=== PATIENT | male | born 1945 | race Caucasian/White ===

== ENCOUNTER → 2021-11-19 | Outpatient (CLI) | payer MEDICARE, OTHER ==
[~2021-11-19] MED LIST: ACET32TAB PO; AMLO1TAB24 PO; AMOX875T2 PO; FARX1TAB5 PO; FLUD0.1T PO; GABA-1171 PO; GABA-282 PO; HYDR25TA PO; NORT25CA2 PO; VITMTA PO
== END ==
LOC: M PAIN 13:00
PROVIDERS: ATTEND Nurse Practitioner Family
DX: M96.1 Postlaminectomy syndrome, not elsewhere classified (principal); M51.16 Intervertebral disc disorders with radiculopathy, lumbar region; G89.29 Other chronic pain; E11.9 Type 2 diabetes mellitus without complications; Z79.899 Other long term (current) drug therapy

== ENCOUNTER 2021-11-28 11:37 | Inpatient (IN) | payer MEDICARE, OTHER ==
[~2021-11-28] VITALS: Ht 167.6 cm; Wt 71.0 kg
[2021-11-28] MEDS ORDERED: FARX1TAB5 PO (12:09)
[2021-11-28] MEDS ORDERED: GABA-282 PO (12:09)
[2021-11-28] MEDS ORDERED: NORT25CA2 PO (12:09)
[2021-11-28] MEDS ORDERED: LABETALOL 100MG/20ML VIAL IV STA (12:42)
[2021-11-28 13:30] LABS: BASO # 0.1 10^3/uL (0.0-0.2); BASO % 1.3 % (0.0-1.0); EOS # 0.4 10^3/uL (0.0-0.5); EOS % 5.2 % (0.0-3.0); HEMATOCRIT 44.7 % (42.0-52.0); LYMPH # 1.2 10^3/uL (1.5-5.0); LYMPH % 15.5 % (24.0-44.0); MEAN CORPUSCULAR HGB CONC 33.6 g/dl (32.0-36.5); MEAN CORPUSCULAR VOLUME 83.4 fl (80.0-96.0); MONO # 0.9 10^3/uL (0.0-0.8); MONO % 11.5 % (2.0-8.0); NEUTROPHILS # 5.1 10^3/uL (1.5-8.5); NEUTROPHILS % 65.7 % (36.0-66.0); PLATELET COUNT, AUTOMATED 194 10^3/uL (150-450); RED BLOOD COUNT 5.36 10^6/uL (4.30-6.10); WHITE BLOOD COUNT 7.7 10^3/uL (4.0-10.0)
[2021-11-28 13:54] LABS: RSV AMPLIFICATION NEGATIVE (NEGATIVE)
[2021-11-28 13:58] LABS: ALT/SGPT 20 U/L (12-78); BILIRUBIN,DIRECT 0.1 MG/DL (0.0-0.2); BILIRUBIN,TOTAL 0.4 MG/DL (0.2-1.0); BLOOD UREA NITROGEN 26 MG/DL (7-18); CALCIUM LEVEL 9.4 MG/DL (8.8-10.2); CARBON DIOXIDE LEVEL 25 MEQ/L (21-32); CHLORIDE LEVEL 105 MEQ/L (98-107); CREATININE FOR GFR 1.02 MG/DL (0.70-1.30); ETHYL ALCOHOL (ETHANOL) < 0.003 % (0.000-0.010); GLOMERULAR FILTRATION RATE > 60.0 (>42); GLUCOSE, FASTING 174 MG/DL (70-100); POTASSIUM SERUM 3.8 MEQ/L (3.5-5.1); SODIUM LEVEL 140 MEQ/L (136-145); TOTAL PROTEIN 7.1 GM/DL (6.4-8.2)
[2021-11-28] MEDS ORDERED: ACETAMINOPHEN TAB 650MG DOSE (2X325MG) PO PRN (16:45)
[2021-11-28 17:46] LABS: AMPHETAMINES LEVEL URINE NEGATIVE (NEGATIVE); BARBITURATES URINE NEGATIVE (NEGATIVE); BENZODIAZEPINES URINE NEGATIVE (NEGATIVE); CANNABINOIDS URINE NEGATIVE (NEGATIVE); COCAINE METABOLITE URINE NEGATIVE (NEGATIVE); METHADONE URINE NEGATIVE (NEGATIVE); OPIATES URINE NEGATIVE (NEGATIVE); PHENCYCLIDINE URINE NEGATIVE (NEGATIVE)
[2021-11-28] MEDS ORDERED: hydrALAZINE 20MG/ML 1ML VIAL (J0360 PER 20MG) IV ONE (18:00)
[2021-11-28] MEDS ORDERED: DEXTROSE 50% 50 ML SYRINGE IV PRN (18:15)
[2021-11-28] MEDS ORDERED: GLUCOSE 4GM CHEW TABLET PO PRN (18:15)
[2021-11-28] MEDS ORDERED: GLUCAGON INJ 1MG VIAL SC PRN (18:15)
[2021-11-28 18:16] LABS: MAGNESIUM LEVEL 2.5 MG/DL (1.8-2.4)
[2021-11-28 18:38] LABS: VITAMIN B12 LEVEL 889 PG/ML (247-911)
[2021-11-28 19:15] LABS: BLOOD UREA NITROGEN 26 MG/DL (7-18); CALCIUM LEVEL 9.4 MG/DL (8.8-10.2); CARBON DIOXIDE LEVEL 27 MEQ/L (21-32); CHLORIDE LEVEL 105 MEQ/L (98-107); CREATININE FOR GFR 0.97 MG/DL (0.70-1.30); GLOMERULAR FILTRATION RATE > 60.0 (>42); GLUCOSE, FASTING 138 MG/DL (70-100); POTASSIUM SERUM 3.9 MEQ/L (3.5-5.1); SODIUM LEVEL 141 MEQ/L (136-145)
[2021-11-28 19:19] LABS: CK-MB VALUE MASS 2.7 NG/ML (<3.6); MB/CK RELATIVE INDEX 3.6 (< OR =4)
[2021-11-28] MEDS: hydrALAZINE 20MG/ML 1ML VIAL (J0360 PER 20MG) IV SCH (20:13)
[2021-11-28] MEDS ORDERED: NORTRIPTYLINE 25 MG CAP PO SCH (21:00)
[2021-11-28] MEDS ORDERED: ACET32TAB PO (22:25)
[2021-11-28] MEDS ORDERED: VITMTA PO (22:25)
[2021-11-28] MEDS ORDERED: HOME MED LIST COMPLETE! XX SCH (22:30)
[2021-11-28] MEDS: INSULIN LISPRO (NovoLOG) PER UNIT SC SCH (22:36)
[2021-11-28 22:45] VITALS: BP 184/100
[2021-11-28] MEDS: QUEtiapine FUMARATE 25 MG TAB PO SCH (23:50)
[2021-11-28] MEDS: amLODIPine 5 MG TAB PO SCH (23:50)
[2021-11-28] MEDS: GABAPENTIN 100 MG CAP PO SCH (23:51)
[2021-11-29] VITALS: BP 182/100
[2021-11-29] MEDS ORDERED: hydrALAZINE 20MG/ML 1ML VIAL (J0360 PER 20MG) IV SCH
[2021-11-29 01:20] LABS: BLOOD UREA NITROGEN 25 MG/DL (7-18); CALCIUM LEVEL 9.2 MG/DL (8.8-10.2); CARBON DIOXIDE LEVEL 26 MEQ/L (21-32); CHLORIDE LEVEL 105 MEQ/L (98-107); CREATININE FOR GFR 1.11 MG/DL (0.70-1.30); GLOMERULAR FILTRATION RATE > 60.0 (>42); GLUCOSE, FASTING 195 MG/DL (70-100); POTASSIUM SERUM 3.9 MEQ/L (3.5-5.1); SODIUM LEVEL 139 MEQ/L (136-145)
[2021-11-29 01:25] LABS: CK-MB VALUE MASS 2.6 NG/ML (<3.6); MB/CK RELATIVE INDEX 3.33 (< OR =4)
[2021-11-29] MEDS: hydrALAZINE 20MG/ML 1ML VIAL (J0360 PER 20MG) IV SCH (02:00)
[2021-11-29 04:00] VITALS: BP 160/86
[2021-11-29 04:50] LABS: HEMATOCRIT 41.4 % (42.0-52.0); HEMOGLOBIN 14.1 g/dl (13.5-17.5); MEAN CORPUSCULAR HEMOGLOBIN 28.8 pg (27.0-33.0); MEAN CORPUSCULAR HGB CONC 34.1 g/dl (32.0-36.5); MEAN CORPUSCULAR VOLUME 84.7 fl (80.0-96.0); PLATELET COUNT, AUTOMATED 190 10^3/uL (150-450); RED BLOOD COUNT 4.89 10^6/uL (4.30-6.10); WHITE BLOOD COUNT 7.1 10^3/uL (4.0-10.0)
[2021-11-29 05:10] LABS: BLOOD UREA NITROGEN 25 MG/DL (7-18); CARBON DIOXIDE LEVEL 24 MEQ/L (21-32); CHLORIDE LEVEL 109 MEQ/L (98-107); CREATININE FOR GFR 1.07 MG/DL (0.70-1.30); GLOMERULAR FILTRATION RATE > 60.0 (>42); GLUCOSE, FASTING 166 MG/DL (70-100); POTASSIUM SERUM 3.8 MEQ/L (3.5-5.1); SODIUM LEVEL 143 MEQ/L (136-145)
[2021-11-29 05:11] LABS: CALCIUM LEVEL 9.5 MG/DL (8.8-10.2); MAGNESIUM LEVEL 2.4 MG/DL (1.8-2.4)
[2021-11-29 08:01] VITALS: BP 156/84
[2021-11-29] MEDS ORDERED: **hydrALAZINE HCL** 25 MG TAB PO PRN (09:20)
[2021-11-29] MEDS: INSULIN LISPRO (NovoLOG) PER UNIT SC SCH ×4 (09:37→21:00)
[2021-11-29] MEDS: GABAPENTIN 100 MG CAP PO SCH ×2 (09:38→21:00)
[2021-11-29] MEDS: MULTIVITAMINS/MINERALS THERAP 1 TAB PO SCH (09:38)
[2021-11-29] MEDS: amLODIPine 5 MG TAB PO SCH ×2 (09:38→21:12)
[2021-11-29] MEDS: ENOXAPARIN 40MG/0.4ML SYRINGE (J1650 PER 10MG) SC SCH (09:38)
[2021-11-29 13:04] LABS: BLOOD UREA NITROGEN 26 MG/DL (7-18); CALCIUM LEVEL 9.8 MG/DL (8.8-10.2); CARBON DIOXIDE LEVEL 25 MEQ/L (21-32); CHLORIDE LEVEL 105 MEQ/L (98-107); CREATININE FOR GFR 1.13 MG/DL (0.70-1.30); GLOMERULAR FILTRATION RATE > 60.0 (>42); GLUCOSE, FASTING 214 MG/DL (70-100); POTASSIUM SERUM 3.6 MEQ/L (3.5-5.1); SODIUM LEVEL 138 MEQ/L (136-145)
[2021-11-29 15:24] VITALS: BP 147/71
[2021-11-29 17:54] VITALS: BP 163/89
[2021-11-29 19:04] LABS: CALCIUM LEVEL 9.3 MG/DL (8.8-10.2); CREATININE FOR GFR 1.24 MG/DL (0.70-1.30); POTASSIUM SERUM 3.6 MEQ/L (3.5-5.1)
[2021-11-29] MEDS: AUGMENTIN 875 MG TAB PO SCH (20:59)
[2021-11-29] MEDS: QUEtiapine FUMARATE 25 MG TAB PO SCH (21:11)
[2021-11-29 22:00] VITALS: BP 175/98
[2021-11-29 23:01] LABS: BLOOD UREA NITROGEN 29 MG/DL (7-18); CALCIUM LEVEL 8.4 MG/DL (8.8-10.2); CARBON DIOXIDE LEVEL 26 MEQ/L (21-32); CHLORIDE LEVEL 105 MEQ/L (98-107); CREATININE FOR GFR 1.16 MG/DL (0.70-1.30); GLOMERULAR FILTRATION RATE > 60.0 (>42); GLUCOSE, FASTING 166 MG/DL (70-100); POTASSIUM SERUM 3.7 MEQ/L (3.5-5.1); SODIUM LEVEL 138 MEQ/L (136-145)
[2021-11-30] VITALS: BP_SYST 101; BP_SYST 155; BP_SYST 184; BP_DIAS 104; BP_DIAS 61; BP_DIAS 85
[2021-11-30 06:00] VITALS: BP 143/84
[2021-11-30 06:58] LABS: HEMATOCRIT 43.4 % (42.0-52.0); HEMOGLOBIN 14.5 g/dl (13.5-17.5); MEAN CORPUSCULAR HEMOGLOBIN 28.7 pg (27.0-33.0); MEAN CORPUSCULAR HGB CONC 33.4 g/dl (32.0-36.5); MEAN CORPUSCULAR VOLUME 85.8 fl (80.0-96.0); PLATELET COUNT, AUTOMATED 215 10^3/uL (150-450); RED BLOOD COUNT 5.06 10^6/uL (4.30-6.10); WHITE BLOOD COUNT 7.5 10^3/uL (4.0-10.0)
[2021-11-30 07:24] LABS: BLOOD UREA NITROGEN 25 MG/DL (7-18); CALCIUM LEVEL 9.7 MG/DL (8.8-10.2); CARBON DIOXIDE LEVEL 27 MEQ/L (21-32); CHLORIDE LEVEL 105 MEQ/L (98-107); CREATININE FOR GFR 1.12 MG/DL (0.70-1.30); GLOMERULAR FILTRATION RATE > 60.0 (>42); GLUCOSE, FASTING 164 MG/DL (70-100); MAGNESIUM LEVEL 2.4 MG/DL (1.8-2.4); POTASSIUM SERUM 3.8 MEQ/L (3.5-5.1); SODIUM LEVEL 139 MEQ/L (136-145)
[2021-11-30] MEDS: INSULIN LISPRO (NovoLOG) PER UNIT SC SCH ×4 (07:30→22:45)
[2021-11-30] MEDS: AUGMENTIN 875 MG TAB PO SCH ×2 (10:32→22:42)
[2021-11-30] MEDS: GABAPENTIN 100 MG CAP PO SCH ×2 (10:33→22:42)
[2021-11-30] MEDS: MULTIVITAMINS/MINERALS THERAP 1 TAB PO SCH (10:33)
[2021-11-30] MEDS: amLODIPine 5 MG TAB PO SCH ×2 (10:34→22:44)
[2021-11-30] MEDS: ENOXAPARIN 40MG/0.4ML SYRINGE (J1650 PER 10MG) SC SCH (10:35)
[2021-11-30 10:50] VITALS: BP_SYST 106; BP_SYST 160; BP_SYST 168; BP_DIAS 62; BP_DIAS 82; BP_DIAS 90
[2021-11-30] MEDS ORDERED: **hydrALAZINE HCL** 25 MG TAB PO PRN (12:55)
[2021-11-30 13:08] LABS: BLOOD UREA NITROGEN 25 MG/DL (7-18); CALCIUM LEVEL 9.5 MG/DL (8.8-10.2); CARBON DIOXIDE LEVEL 29 MEQ/L (21-32); CHLORIDE LEVEL 101 MEQ/L (98-107); CREATININE FOR GFR 1.06 MG/DL (0.70-1.30); GLOMERULAR FILTRATION RATE > 60.0 (>42); GLUCOSE, FASTING 167 MG/DL (70-100); POTASSIUM SERUM 3.6 MEQ/L (3.5-5.1); SODIUM LEVEL 135 MEQ/L (136-145)
[2021-11-30] MEDS: FLUDROCORTISONE ACETATE 0.1 MG TAB PO SCH (13:26)
[2021-11-30 14:00] VITALS: BP 182/87
[2021-11-30 20:48] VITALS: BP 162/90
[2021-12-01 06:14] VITALS: BP 142/76
[2021-12-01 06:22] LABS: HEMATOCRIT 44.1 % (42.0-52.0); HEMOGLOBIN 14.6 g/dl (13.5-17.5); MEAN CORPUSCULAR HEMOGLOBIN 27.7 pg (27.0-33.0); MEAN CORPUSCULAR HGB CONC 33.1 g/dl (32.0-36.5); MEAN CORPUSCULAR VOLUME 83.5 fl (80.0-96.0); PLATELET COUNT, AUTOMATED 223 10^3/uL (150-450); RED BLOOD COUNT 5.28 10^6/uL (4.30-6.10); WHITE BLOOD COUNT 8.3 10^3/uL (4.0-10.0)
[2021-12-01 06:42] LABS: MAGNESIUM LEVEL 2.4 MG/DL (1.8-2.4)
[2021-12-01 08:58] LABS: BLOOD UREA NITROGEN 21 MG/DL (7-18); CALCIUM LEVEL 9.6 MG/DL (8.8-10.2); CARBON DIOXIDE LEVEL 24 MEQ/L (21-32); CHLORIDE LEVEL 105 MEQ/L (98-107); CREATININE FOR GFR 1.01 MG/DL (0.70-1.30); GLOMERULAR FILTRATION RATE > 60.0 (>42); GLUCOSE, FASTING 146 MG/DL (70-100); POTASSIUM SERUM 3.7 MEQ/L (3.5-5.1); SODIUM LEVEL 138 MEQ/L (136-145)
[2021-12-01] MEDS: ENOXAPARIN 40MG/0.4ML SYRINGE (J1650 PER 10MG) SC SCH (09:14)
[2021-12-01] MEDS: AUGMENTIN 875 MG TAB PO SCH (09:14)
[2021-12-01 09:15] VITALS: BP 170/80
[2021-12-01] MEDS: GABAPENTIN 100 MG CAP PO SCH (09:15)
[2021-12-01] MEDS: FLUDROCORTISONE ACETATE 0.1 MG TAB PO SCH (09:15)
[2021-12-01] MEDS: amLODIPine 5 MG TAB PO SCH (09:15)
[2021-12-01] MEDS: INSULIN LISPRO (NovoLOG) PER UNIT SC SCH ×2 (09:16→12:16)
[2021-12-01] MEDS: MULTIVITAMINS/MINERALS THERAP 1 TAB PO SCH (09:16)
[2021-12-01] MEDS ORDERED: HYDR25TA PO (11:07)
[2021-12-01] MEDS ORDERED: AMLO1TAB24 PO (11:07)
[2021-12-01] MEDS ORDERED: FLUD0.1T PO (11:07)
[2021-12-01] MEDS ORDERED: AMOX875T2 PO (11:07)
[2021-12-01] MEDS ORDERED: GABA-1171 PO (17:09)
[2021-12-01] MEDS ORDERED: NORT25CA2 PO (17:10)
[2021-12-03 23:07] LABS: VITAMIN B1 LEVEL WHOLE BLOOD 130.3 nmol/L (66.5-200.0)
== END 2021-12-01 14:13 | disposition home or self-care (01) | DRG 304 ==
LOC: M ED 11:37 → M ED INP 17:20 → ENRESERV 20:01 → M PCU 23:00 → M MSPAV 11-29 17:48
PROVIDERS: ADMIT Internal Medicine; ATTEND Internal Medicine Nephrology
DX: I16.0 Hypertensive urgency (principal); G93.41 Metabolic encephalopathy; R44.0 Auditory hallucinations; G81.94 Hemiplegia, unspecified affecting left nondominant side; I10 Essential (primary) hypertension; E11.42 Type 2 diabetes mellitus with diabetic polyneuropathy; M54.12 Radiculopathy, cervical region; M48.02 Spinal stenosis, cervical region; M50.223 Other cervical disc displacement at C6-C7 level; R44.1 Visual hallucinations; M54.50 Low back pain, unspecified; G89.29 Other chronic pain; Z98.41 Cataract extraction status, right eye; Z98.42 Cataract extraction status, left eye; Z20.822 Contact with and (suspected) exposure to COVID-19; Z79.899 Other long term (current) drug therapy; I95.1 Orthostatic hypotension